=== PATIENT | female | born 1960 | race American Indian/Alaskan Native ===

== ENCOUNTER 2016-05-16 13:36 | Outpatient (CLI) | payer MEDICARE ==
--- NOTE | 2016-05-16 14:46 | Mammography Report ---
LEFT DIGITAL DIAGNOSTIC MAMMOGRAM and LEFT BREAST ULTRASOUND: 05/16/16 13:36:00 CLINICAL: Recalled for asymmetry. COMPARISON:05/01/16 screening FINDINGS: Spot compression MLO and CC views were performed and demonstrate a persistent circumscribed oval density in the upper outer quadrant. Ultrasound of the upper inner quadrant was performed and demonstrated a benign cyst at 11 o'clock 5 cm from the nipple measuring 1.0 x 0.90 0.6 cm. It correlates with the mammographic density. A benign complex cyst at 10 o'clock 3 cm from the nipple measures 6 x 3 x 4 mm and has a mammographic correlate on the spot CC view. No solid mass. IMPRESSION: Benign cysts left breast. BI-RADS CATEGORY: 2 - - Benign RECOMMENDATION: Routine mammographic screening in one year. ACR BI-RADS MAMMOGRAPHIC CODES: 0 = Needs additional imaging evaluation; 1 = Negative; 2 = Benign; 3 = Probably benign; 4 = Suspicious; 5 = Malignant; 6 = Known biopsy-proven malignancy COMMENT: 1. Dense breast tissue, i.e., adenosis, fibrocystic changes, etc., may obscure an underlying neoplasm. 2. Approximately 10% of cancers are not detected with mammography. 3. A negative mammography report should not delay biopsy if a clinically suspicious mass is present. COMMENT: Patient follow-up letters are generated via our [employer] application.
== END 2016-05-16 13:37 | disposition home or self-care (01) ==
LOC: SPVWC 13:36
PROVIDERS: ATTEND Internal Medicine
DX: N60.02 Solitary cyst of left breast (principal); R92.8 Other abnormal and inconclusive findings on diagnostic imaging of breast
CPT/HCPCS: 76642; G0206

== ENCOUNTER 2016-05-24 15:12 | Emergency (ER) | payer OTHER, MEDICARE ==
[2016-05-24] MEDS ORDERED: NORCO 7.5/325 PO ONE (17:56)
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
--- NOTE | 2016-05-24 20:05 | XRay Report ---
FINAL REPORT PROCEDURE: XR SPINE CERVICAL 2-3V TECHNIQUE: 4 views of the cervical spine HISTORY: neck pain COMPARISON: No prior studies are available for comparison. FINDINGS: There is straightening of the usual cervical lordosis, which can be seen with muscle spasm or patient positioning. Vertebral body heights and alignment are maintained. The prevertebral soft tissues are within normal limits in thickness. IMPRESSION: No acute osseous abnormality is seen. Straightening of the usual cervical lordosis can be seen with muscle spasm or patient positioning
[2016-05-24 20:53] VITALS: BP 120/66
== END 2016-05-24 20:51 | disposition home or self-care (01) ==
LOC: ED 15:12
DX: S13.4XXA Sprain of ligaments of cervical spine, initial encounter (principal); V49.9XXA Car occupant (driver) (passenger) injured in unspecified traffic accident, initial encounter; Y93.89 Activity, other specified; Y99.9 Unspecified external cause status; Y92.410 Unspecified street and highway as the place of occurrence of the external cause
CPT/HCPCS: 72040